=== PATIENT | male | born 1940 | race Caucasian/White ===

== ENCOUNTER 2019-03-31 15:33 | Inpatient (IN) | payer MEDICARE ==
[~2019-03-31] VITALS: Ht 175.3 cm; Wt 72.6 kg
--- NOTE | 2019-03-31 17:00 | NUR ---
PATIENT ADMITTED FROM [facility] IN [place]. DIAG: ASPIRATION PNEUMONIA. ALERT/ORIENT TO SELF. PATIENT BROUGHT BY AMBULANCE. MARIAJOSEECE, AUBREY, WITH PATIENT. OXYGEN ON AT 2L PER N/C
--- NOTE | 2019-03-31 17:05 | NUR ---
RECIEVED PER AMBULANCE FROM [facility],ROOM 1113A.ORIENTED TO ROOM AND SURROUNDINGS.ACCOMPANIED BY BASSEM RUSS.
[2019-03-31] MEDS ORDERED: ASPIRIN81 MG PO (17:36)
[2019-03-31] MEDS ORDERED: OMNICEF300 MG PO (17:36)
[2019-03-31] MEDS ORDERED: VITAMIN D31000 UNI2 PO (17:37)
[2019-03-31] MEDS ORDERED: PROZAC10 MG PO (17:38)
[2019-03-31] MEDS ORDERED: NEURONTIN 300300 MG PO (17:39)
[2019-03-31] MEDS ORDERED: MYCOLOG TOPICAL (17:40)
[2019-03-31] MEDS ORDERED: FLOMAX0.4 MG PO (17:42)
[2019-03-31] MEDS ORDERED: VITAMIN B-12100 MCG PO (17:43)
--- NOTE | 2019-03-31 19:09 | NUR ---
GREETED PATIENT AND INTRODUCED MYSELF HIS NURSE. PATIENT IS CONFUSED AT THIS TIME. ORIENTATED TO SELF ONLY. FAMILY MEMBER AT BEDSIDE AT THIS TIME. O2 AT 2L VIA NC. IN USE. RESPIRATIONS EVEN. NO S/S OF DISTRESS. CALL LIGHT IN REACH.
[2019-03-31 21:59] VITALS: BP 127/59; BMI 23.6
--- NOTE | 2019-04-01 00:24 | NUR ---
PT. RESTING QUIETLY WITH EYES CLOSED. RESPIRATIONS EVEN. NO S/S OF DISTRESS. O2 AT 2L IN USE VIA NC. CALL LIGHT IN REACH.
--- NOTE | 2019-04-01 02:27 | NUR ---
PT. CLEANED OF INCONTINENT URINE. REPOSITIONED FOR COMFORT. CALL LIGHT IN REACH.
--- NOTE | 2019-04-01 08:12 | NUR ---
PT RESTING IN BED WITH EYES OPEN CALL LIGHT IN REACH NO PROBLEMS WILL MONITER
[2019-04-01 08:13] VITALS: BP 142/55
[2019-04-01 14:20] VITALS: Ht 175.3 cm; Wt 72.6 kg
--- NOTE | 2019-04-01 14:51 | NUR ---
SPOKE WITH PATIENT BROTHER AND SISTER N LAW AND THEY HAVE PROVIDED DOCUMENTS THAT THEY MAY VISIT PATIENT. DOCUMENTS ARE IN CHART.
--- NOTE | 2019-04-01 18:18 | NUR ---
PT RESTING IN BED WITH EYES OPEN CALL LIGHT IN REACH NO PROBLEMS WILL MONITER
[2019-04-01 19:40] VITALS: BP 154/63
--- NOTE | 2019-04-01 19:40 | NUR ---
BEDSIDE REPORT COMPLETE. PT LYING IN BED EYES CLOSED RESTING. EASILY AROUSED WITH VERBAL STIMULI. DENIES ANY NEEDS OR PAIN. CONTINUES ON 2L VIA NC. VS STABLE SHIFT ASSESSMENT COMPLETE. CL IN REACH. BED ALARM ON. WILL CONTINUE TO MONITOR
--- NOTE | 2019-04-01 23:14 | NUR ---
QUIET HOURS. PT LYING IN BED EYES CLOSED RESTING COMFORTABLY. HOB 10 DEGREES. RR EVEN AND UNLABORED. CL IN REACH
--- NOTE | 2019-04-02 03:17 | NUR ---
PT LYING IN BED EYES CLOSED RESTING COMFORTABLY. HOB 15 DEGREES. RR EVEN AND UNLABORED. CONTINUES ON 2L VIA NC. CL IN REACH
[2019-04-02 08:00] VITALS: BP 153/51
--- NOTE | 2019-04-02 08:00 | NUR ---
PATIENT IS ALERT WITH CONFUSION. ALERT TO SELF ONLY. SITTING UP IN BED TO EAT BREAKFAST. PATIENT ABLE TO FEED SELF WITH SETUP. ON REGULAR DIET WITH NECATAR THICK LIQ WITH MECH SOFT, CHOPPED MEAT
--- NOTE | 2019-04-02 10:45 | NUR ---
PATIENT INCONT OF URINE. CHANGED BEFORE GETTING UP IN WHEELCHAIR FOR THERAPY. MAX ASST OF TWO PEOPLE TO TRANSFER FROM BED TO WHEELCHAIR
--- NOTE | 2019-04-02 15:50 | NUR ---
PATIENTS NIECE IN ROOM, VISITING WITH PATIENT
--- NOTE | 2019-04-02 17:10 | NUR ---
PATIENT BASSEM HELPED PATIENT WITH SUPPER
[2019-04-02 18:40] VITALS: BP 148/57
--- NOTE | 2019-04-02 18:40 | NUR ---
BEDSIDE REPORT COMPLETE. PT LYING IN BED ALERT AND AWAKE. ASSISTED SHAQUILLE MEHTA WITH PERFORMING INCONTINENCE CARE LARGE VOID. NEW GOWN, CHUX, AND BUTTPASTE APPLIED TO BUTTOCKS. RR EVEN AND UNLABORED. CL IN REACH, BED ALARM ON. WILL CONTINUE TO MONITOR
--- NOTE | 2019-04-02 23:08 | NUR ---
PT LYING ON RIGHT SIDE EYES CLOSED RESTING QUIETLY. RR EVEN AND UNLABORED. CONTINUES ON 2L VIA NC. CL IN REACH
--- NOTE | 2019-04-03 03:07 | NUR ---
PT LYING IN BED EYES CLOSED RESTING. CHUX AND LINENS CLEAN AND DRY. RR EVEN AND UNLABORED. CL IN REACH
--- NOTE | 2019-04-03 05:30 | NUR ---
PERFORMED BEDBATH AND COMPLETE LINEN CHANGE. DENIES ANY NEEDS OR PAIN. NO SIGNS OF ACUTE DISTRESS NOTED. CONTINUES ON 2L VIA NC. CL AND WATER WITHIN REACH.
--- NOTE | 2019-04-03 08:15 | NUR ---
PT RESTING IN BED WITH EYES OPEN CALL LIGHT IN REACH WILL MONITER
[2019-04-03 18:10] VITALS: BP 109/49
--- NOTE | 2019-04-03 18:50 | NUR ---
BEDSIDE REPORT COMPLETE. PT LYING IN BED WATCHING TV. DENIES ANY NEEDS OR PAIN. RR EVEN AND UNLABORED. VS STABLE. SHIFT ASSESSMENT COMPLETE. CL IN REACH. BED ALARM ON. WILL CONTINUE TO MONITOR
[2019-04-03 20:40] VITALS: BP 170/59
--- NOTE | 2019-04-04 00:08 | NUR ---
QUIET HOURS. PT LYING IN BED EYES CLOSED RESTING. RR EVEN AND UNLABORED. CL IN REACH
--- NOTE | 2019-04-04 04:17 | NUR ---
PT LYING IN BED EYES CLOSED RESTING. RR EVEN AND UNLABORED. CL IN REACH
--- NOTE | 2019-04-04 05:15 | NUR ---
PERFORMED INCONTINENCE CARE LARGE VOID AND MED FORMED BM. APPLIED CALMOSEPTINE TO BUTTOCKS AND GROIN AREA.
[2019-04-04 06:17] LABS: BASOPHILS 0.2 % (0-2); EOSINOPHILS 3.4 % (0-7); HEMATOCRIT 29.7 % (42.0-54.0); HEMOGLOBIN 9.5 g/dL (13.5-17.5); IMMATURE GRANULOCYTES 0.6 % (0-5); LYMPHOCYTES 16.5 % (15-50); MCV 87.6 fL (80.0-100.0); MEAN PLATELET VOLUME 9.4 fL (7.4-10.4); MONOCYTES 8.8 % (2-11); NEUTROPHILS 70.5 % (40-80); PLATELET COUNT 318 10x3/uL (130-400); RBC 3.39 10x6/uL (4.20-6.10); RDW 14.8 % (11.5-14.5); WBC 9.6 10x3/uL (4.8-10.8)
[2019-04-04 06:32] LABS: CALC OSMOLALITY 281 mosm/kg (275-300); CALCIUM 8.6 mg/dL (8.5-10.1); CARBON DIOXIDE 26.6 mmol/L (21.0-32.0); CHLORIDE - SERUM 104 mmol/L (98-107); GLUCOSE 97 mg/dL (74-106); POTASSIUM - SERUM 4.6 mmol/L (3.5-5.1); SODIUM 139 mmol/L (136-145); UREA NITROGEN 24 mg/dL (7-18); eGFR NON AFRICAN AMERICAN 76 mL/min (90-120)
[2019-04-04 08:00] VITALS: BP 128/92
--- NOTE | 2019-04-04 08:00 | NUR ---
PATIENT IS ALERT WITH CONFUSION. SITTING UP IN BED TO EAT BREAKFAST. FOOD CUT UP FOR THIS PATIENT AND CARTONS OPENED. PATIENT ABLE TO FEED SELF. BED ALARM ON. PATIENT VOICES NO FURTHER NEEDS. WILL CONTINUE WITH PLAN OF CARE
--- NOTE | 2019-04-04 10:59 | NUR ---
OCCUPATIONAL THERAPY IN PATIENTS ROOM. GETTING PATIENT OUT OF BED. PATIENT IS A MAX TO TOTAL ASST OF TWO
--- NOTE | 2019-04-04 13:19 | NUR ---
PATIENT DOWN IN REHAB ROOM. WORKIN WITH PHYSICAL THERAPIST.
--- NOTE | 2019-04-04 14:43 | NUR ---
Nutrition Follow-up: Diet: Regular [facility] Soft, Chopped Meat, Nec thick PO intake: ~69% average x last 9 meals. Reports good appetite, he thinks he is eating "okay, I guess." States that he likes Ensure. Last BM: 04/04/19. WT: 160# (04/01/19) Labs and meds reviewed. Noted stage II PU to R buttocks per nursing skin assessment. Continue current diet or per EQUAL OPPORTUNITY SPECIALIST. Encourage PO intake. Will add nectar thick Ensure to diet order. RD following.
--- NOTE | 2019-04-04 16:15 | NUR ---
SPEECH THERAPIST IN ROOM. WORKING WITH PATIENT
--- NOTE | 2019-04-04 18:41 | NUR ---
PATIENT SITTING UP IN BED TO EAT SUPPER. HAS VISITORS IN ROOM.
[2019-04-04 19:00] VITALS: BP 140/71
--- NOTE | 2019-04-04 19:00 | NUR ---
BEDSIDE REPORT COMPLETE. PT SITTING UP IN BED VISITING WITH FAMILY. DENIES ANY NEEDS OR PAIN. NO SIGNS OF ACUTE DISTRESS NOTED. VS STABLE. SHIFT ASSESSMENT COMPLETE. CL IN REACH. BED ALARM ON. WILL CONTINUE TO MONITOR
--- NOTE | 2019-04-05 | NUR ---
QUIET HOURS. PT LYING IN BED EYES CLOSED RESTING COMFORTABLY. RR EVEN AND UNLABORED. CL IN REACH
--- NOTE | 2019-04-05 03:05 | NUR ---
PERFORMED INCONTINENCE CARE FOR LARGE VOID AND SMALL FORMED BM. COMPLETE LINEN CHANGE DONE. CALMOSEPTINE APPLIED TO GROIN AREA. CL IN REACH.
[2019-04-05 08:00] VITALS: BP 112/32
[2019-04-05 20:12] VITALS: BP 137/59
--- NOTE | 2019-04-05 20:21 | NUR ---
AWAKE AND ALERT. RESTING IN BED WITH RESPIRAITONS UNLABORED. NO DISTRESS NOTED. CALL LIGHT IN REACH.
--- NOTE | 2019-04-06 01:17 | NUR ---
INCONTINENT OF URINE AND BOWEL. INCONTINENCE CARE GIVEN AND BED LINENS CHANGED. NOW RESTING IN BED WITH RESPIRATIONS UNLABORED. CALL LIGHT IN REACH.
--- NOTE | 2019-04-06 03:06 | NUR ---
SLEEPING WITH RESPIRATIONS UNLABORED. NO DISTRESS NOTED. CALL LIGHT IN REACH.
--- NOTE | 2019-04-06 05:12 | NUR ---
INCONTINENT OF BOWEL AND BLADDER AGAIN. INCONTINENCE CARE GIVEN AND BED BATH GIVEN. REMAINS CONFUSED. SLEPT IN MODERATE INTERVALS. RESTING NOW WITH RESPIRATIONS UNLABORED.
[2019-04-06 06:19] LABS: BASOPHILS 0.5 % (0-2); HEMATOCRIT 30.3 % (42.0-54.0); HEMOGLOBIN 9.7 g/dL (13.5-17.5); IMMATURE GRANULOCYTES 1.6 % (0-5); LYMPHOCYTES 16.2 % (15-50); MCH 28.6 pg (26.0-34.0); MCV 89.4 fL (80.0-100.0); MEAN PLATELET VOLUME 9.9 fL (7.4-10.4); MONOCYTES 10.6 % (2-11); NEUTROPHILS 64.1 % (40-80); PLATELET COUNT 377 10x3/uL (130-400); RBC 3.39 10x6/uL (4.20-6.10); RDW 14.7 % (11.5-14.5); WBC 7.7 10x3/uL (4.8-10.8)
[2019-04-06 07:07] LABS: ANION GAP 13.4 mmol/L (8-16); CALCIUM 8.9 mg/dL (8.5-10.1); CARBON DIOXIDE 27.4 mmol/L (21.0-32.0); CREATININE - SERUM 1.2 mg/dL (0.6-1.3); POTASSIUM - SERUM 4.8 mmol/L (3.5-5.1)
[2019-04-06 07:46] VITALS: BP 139/54
--- NOTE | 2019-04-06 15:57 | NUR ---
Nutrition Follow-up: Diet: Regular [facility] Soft, Thin Liquids PO intake: ~56% average x last 9 meals recorded. Reports that his appetite is "not too good." However, he had eaten most of his lunch tray. States that he likes the Ensure and is "drinking them for calories." Last BM: 04/06/19 x 2. WT: 160# (04/01/19), no new wt Meds and labs reviewed. Noted stage II PU to right buttocks per nursing skin. Continue current nutrition regimen. Encouraged PO intake. RD following.
--- NOTE | 2019-04-06 16:00 | NUR ---
PT HAS OPEN WOUND MEASURING 3CM X 3CM ON RIGHT BUTTOCK (STAGE 2 PRESSURE INJURY) AND 3CM X 3CM ON LEFT BUTTOCK. THE AREAS APPEAR TO BE HEALING. RECOMMENDED CALMOSEPTINE CREAM BE APPLIED BID AND NEEDED WITH ANY INCONTINENT EPISODES. ALSO RECOMMENDED NOT USING MEPILEX BORDER DRESSINGS OVER CALMOSEPTINE COVERED SKIN. KEEP PT TURN/REPOSITIONED ON HIS SIDES WHILE IN BED. WOUND CARE WILL MONITOR.
--- NOTE | 2019-04-06 16:17 | NUR ---
CARE TEAM MEETING: PATIENTS BROTHER AND SISTER N LAW ATTENDED MEETING. THEIR QUESTIONS AND CONCERNS WERE ADDRESSED. DISCHARGE PLANS ARE UNCERTAIN AT THIS TIME. WILL CONTINUE TO FOLLOW WITH PATIENT. WILL CONTINUE TO FOLLOW WITH PATIENT.TENATIVE DISCHARGE DATE 04/15/19.
[2019-04-06 19:30] VITALS: BP 136/62
--- NOTE | 2019-04-06 19:35 | NUR ---
BEDSIDE REPORT COMPLETE. PT SITTING UP IN BED ALERT AND ORIENTED X2. DENIES ANY NEEDS OR PAIN. ASSISTED JESUS MANUEL RN WITH INCONTINENCE CARE. CALMOSEPTINE APPLIED TO BUTTOCKS. POSITIONED PT ON RIGHT SIDE. CL IN REACH. FALL PRECAUTIONS IN PLACE. WILL CONTINUE TO MONITOR
--- NOTE | 2019-04-07 00:10 | NUR ---
QUIET HOURS. PT LYING IN BED ON RIGHT SIDE EYES CLOSED RESTING COMFORTABLY. RR EVEN AND UNLABORED. CL IN REACH
--- NOTE | 2019-04-07 03:57 | NUR ---
PT LYING IN BED ON LEFT SIDE EYES CLOSED RESTING. RR EVEN AND UNLABORED. CL IN REACH
--- NOTE | 2019-04-07 06:54 | NUR ---
PT LYING IN BED ON LEFT SIDE EYES CLOSED RESTING. RR EVEN AND UNLABORED. CL IN REACH
--- NOTE | 2019-04-07 12:10 | NUR ---
PT RESTING IN BED WITH EYES OPEN CALL LIGHT IN REACH NO PROBLEMS WILL MONITER
--- NOTE | 2019-04-07 18:03 | NUR ---
PT RESTING IN BED WITH EYES OPEN CALL LIGHT IN REACH NO PROBLEMS WILL MONITER
[2019-04-07 19:30] VITALS: BP 129/55
--- NOTE | 2019-04-07 19:30 | NUR ---
BEDSIDE REPORT COMPLETE. PT LYING IN BED ON RIGHT SIDE EYES CLOSED RESTING. EASILY AROUSED WITH VERBAL STIMULI. DENIES ANY NEEDS OR PAIN. NO SIGNS OF ACUTE DISTRESS NOTED. VS STABLE. SHIFT ASSESSMENT COMPLETE. CL IN REACH. FALL PRECAUTIONS IN PLACE. WILL CONTINUE TO MONITOR
--- NOTE | 2019-04-08 00:09 | NUR ---
QUIET HOURS. PT LYING IN BED RIGHT SIDE EYES CLOSED RESTING COMFORTABLY. RR EVEN AND UNLABORED. CL IN REACH
--- NOTE | 2019-04-08 03:52 | NUR ---
PT LYING IN BED ON RIGHT SIDE EYES CLOSED RESTING COMFORTABLY. RR EVEN AND UNLABORED. CL IN REACH
--- NOTE | 2019-04-08 04:52 | NUR ---
PERFORMED INCONTINENCE CARE CHANGED UNDERPADS AND APPLIED CALMOSEPTINE TO BUTTOCKS AND GROIN AREA. POSITIONED PT ON LEFT SIDE. CL IN REACH
--- NOTE | 2019-04-08 06:15 | NUR ---
PERFORMED INCONTINENCE CARE, CHANGED UNDERPADS, APPLIED CALMOSEPTINE TO BUTTOCKS AND GROIN. POSITIONED PT TO RIGHT SIDE. CL IN REACH
[2019-04-08 07:28] LABS: BASOPHILS 0.4 % (0-2); EOSINOPHILS 4.1 % (0-7); HEMATOCRIT 30.5 % (42.0-54.0); HEMOGLOBIN 9.8 g/dL (13.5-17.5); IMMATURE GRANULOCYTES 0.9 % (0-5); LYMPHOCYTES 20.8 % (15-50); MCHC 32.1 g/dL (31.0-37.0); MEAN PLATELET VOLUME 9.3 fL (7.4-10.4); MONOCYTES 9.5 % (2-11); NEUTROPHILS 64.3 % (40-80); PLATELET COUNT 430 10x3/uL (130-400); RDW 14.9 % (11.5-14.5); WBC 6.8 10x3/uL (4.8-10.8)
[2019-04-08 07:42] LABS: ANION GAP 12.7 mmol/L (8-16); CALCIUM 9.2 mg/dL (8.5-10.1); CARBON DIOXIDE 26.8 mmol/L (21.0-32.0); CREATININE - SERUM 1.3 mg/dL (0.6-1.3); POTASSIUM - SERUM 4.5 mmol/L (3.5-5.1)
[2019-04-08 07:46] LABS: MCV 87.1 fL (80.0-100.0)
--- NOTE | 2019-04-08 08:15 | NUR ---
PT RESTING IN BED WITH EYES OPEN CALL LIGHT IN REACH NO PROBLEMS WILL MONITER
[2019-04-08 08:19] VITALS: BP 133/67
--- NOTE | 2019-04-08 18:26 | NUR ---
PT INCONTINENT OF URINE PT CLEANED AND DRYED WILL MONITER
[2019-04-08 19:51] VITALS: BP 129/55
--- NOTE | 2019-04-08 20:04 | NUR ---
AWAKE AND ALERT. RESTING IN BED WITH RESPIRAITONS UNLABORED. NOTED CONFUSED. NO ACUTE DISTRESS NOTED. CALL LIGHT IN REACH.
--- NOTE | 2019-04-09 00:45 | NUR ---
RESTING IN BED WITH EYES CLOSED AND RESPIRATIONS UNLABORED. NO DISTRESS NOTED. CALL LIGHT IN REACH.
--- NOTE | 2019-04-09 02:38 | NUR ---
CONTINUES SLEEPING WITH RESPIRATIONS UNLABORED. NO DISTRESS NOTED.
--- NOTE | 2019-04-09 05:03 | NUR ---
QUIET HOURS. NO ACUTE CHANGES IN CONDITION THIS SHIFT. RESTING IN BED WITH NO DISTESS NOTED.
[2019-04-09 08:00] VITALS: BP 142/61
--- NOTE | 2019-04-09 08:00 | NUR ---
SHIFT ASSMT COMPLETED.
[2019-04-09 19:28] VITALS: BP 162/61
--- NOTE | 2019-04-09 19:34 | NUR ---
AWAKE AND ALERT. RESTING IN BED FINISHING MEAL. RESPIRATIONS UNLABORED. NO ACUTE DISTRESS NOTED. CALL LIGHT IN REACH.
--- NOTE | 2019-04-09 22:50 | NUR ---
HIBLICLENS BATH GIVEN AND LINENS CHANGED. INCONTINENT OF URINE AND BM. AFTER BATH A CONDOM CATHETHER APPLIED. MEPILEX DRESSING APPLIED TO PRESSURE SORES ON BUTTOCKS. WILL MONITOR EFFECTIVNESS OF CONDOM CATHETER TO KEEP URINE AWAY FROM SKIN.
--- NOTE | 2019-04-10 02:30 | NUR ---
RESTING IN BED WITH EYES CLOSED AND RESPIRATIONS UNLABORED. CONDOM CATH IN PLACE AND DRAINING TO RIDDLE BAG. NO DISTRESS NOTED.
--- NOTE | 2019-04-10 05:19 | NUR ---
QUIET HOURS. NO ACUTE CHANGES IN CONDITION THIS SHIFT. CONDOM CATHETER IN PLACE WITH NOTED 650ML OUTPUT. MEPILEX DRESSING TO BUTTOCKS IN PLACE. RESTING NOW WITH NO DISTRESS NOTED.
[2019-04-10 08:00] VITALS: BP 124/52
--- NOTE | 2019-04-10 08:00 | NUR ---
SHIFT ASSMT COMPLETED.
--- NOTE | 2019-04-10 16:00 | NUR ---
WILL CONTINUE TO MONITOR
[2019-04-10 19:25] VITALS: BP 129/54
--- NOTE | 2019-04-10 19:29 | NUR ---
RESTING IN BED WITH RESPIRATIONS UNLABORED. REMAINS CONFUSED AT TIMES. NO DISTRESS NOTED. CALL LIGHT IN REACH.
--- NOTE | 2019-04-11 00:54 | NUR ---
INCONTINENT OF URINE. INCONTIENCE CARE GIVEN. RESTING NOW WITH NO DISTRESS NOTED.
[2019-04-11 06:50] LABS: BASOPHILS 0.5 % (0-2); EOSINOPHILS 4.8 % (0-7); HEMATOCRIT 32.5 % (42.0-54.0); HEMOGLOBIN 10.2 g/dL (13.5-17.5); IMMATURE GRANULOCYTES 0.9 % (0-5); LYMPHOCYTES 20.7 % (15-50); MCH 27.9 pg (26.0-34.0); MCHC 31.4 g/dL (31.0-37.0); MEAN PLATELET VOLUME 9.3 fL (7.4-10.4); MONOCYTES 6.5 % (2-11); NEUTROPHILS 66.6 % (40-80); PLATELET COUNT 492 10x3/uL (130-400); RBC 3.65 10x6/uL (4.20-6.10); RDW 14.9 % (11.5-14.5)
[2019-04-11 07:09] LABS: CALCIUM 8.9 mg/dL (8.5-10.1); CARBON DIOXIDE 26.6 mmol/L (21.0-32.0); CREATININE - SERUM 1.4 mg/dL (0.6-1.3); POTASSIUM - SERUM 4.6 mmol/L (3.5-5.1)
[2019-04-11 09:04] VITALS: BP 133/67
--- NOTE | 2019-04-11 11:24 | NUR ---
PARTICIPATED IN THERAPY THIS AM. SITTING IN WC WITH CHAIR ALARM ON AT THIS TIME.
--- NOTE | 2019-04-11 13:54 | NUR ---
Nutrition Follow-up: [facility], thin liquids PO intake: 75-100% x last 10 meals; reports good appetite. Is drinking Ensure. Last BM: 04/10/19. WT: 160# (04/01/19), no new wt Meds and labs reviewed. Noted stage II PU x 2 to buttocks per nursing skin assessment. Recommend continue current nutrition regimen. RD following.
--- NOTE | 2019-04-11 16:37 | NUR ---
NO CHANGE IN ASSESSMENT. RESTING WO DISTRESS. CL IN REACH.
--- NOTE | 2019-04-11 19:15 | NUR ---
PT IS RESTING IN BED WITH EYES OPEN. ALERT TO SELF AND PLACE. CONFUSED TO TIME AND SITUATION. NO INCONTINENCE NOTED AT THIS TIME. MEPILEX TO COCCYX IS CDI. SR'S ARE UP X 2 IN BED. CALL LIGHT AND BEDSIDE TABLE ARE WITHIN EASY REACH.
[2019-04-11 21:58] VITALS: BP 114/53
--- NOTE | 2019-04-11 23:00 | NUR ---
PT IS RESTING QUIETLY IN BED WITH EYES CLOSED. RESPS ARE EVEN AND UNLABORED. NO ACUTE DISTRESS NOTED.
--- NOTE | 2019-04-12 03:00 | NUR ---
RESTING IN BED WITH EYES CLOSED.
--- NOTE | 2019-04-12 06:11 | NUR ---
PT RESTING IN BED WITH EYES CLOSED.
--- NOTE | 2019-04-12 08:15 | NUR ---
PT RESTING IN BED WITH EYES OPEN CALL LIGHT IN REACH WILL MONITER
--- NOTE | 2019-04-12 11:35 | NUR ---
AFTER SPEAKING WITH FAMILY A REFERRAL HAS BEEN MADE TO [facility] FOR POSSIBLE ADMISSION ON 04/15/19. WILL CONTINUE TO FOLLOW WITH PATIENT
--- NOTE | 2019-04-12 18:32 | NUR ---
PT RESTING IN BED WITH EYES OPEN CALL LIGHT IN REACH NO PROBLEMS WILL MONITER
--- NOTE | 2019-04-12 19:41 | NUR ---
PATIENT RECEIVED SITTING UP IN BED. ASSESMENT & VITAL SIGNS DONE. NO C/O PAIN OR DISTRESS. BED LOW. CONDOM CATH PATENT WITH URINE YELLOW COLOR. ALARM ON. CALL LIGHT WITHIN REACH. WILL CONTINUE TO MONITOR.
[2019-04-12 19:45] VITALS: BP 117/64; BP 129/58
--- NOTE | 2019-04-13 00:39 | NUR ---
I have reviewed this patient and I concur with the Shift Assessment completed by the Licensed Practical Nurse today this shift.
--- NOTE | 2019-04-13 02:31 | NUR ---
PATIENT EYES CLOSED. RESPIRATIONS 18 & EVEN. BED LOW. ALARM ON. CALL LIGHT WITHIN REACH. WILL CONTINUE TO MONITOR.
[2019-04-13 07:20] LABS: ANION GAP 9.2 mmol/L (8-16); CALCIUM 8.7 mg/dL (8.5-10.1); CARBON DIOXIDE 28.2 mmol/L (21.0-32.0); CREATININE - SERUM 1.4 mg/dL (0.6-1.3); POTASSIUM - SERUM 4.4 mmol/L (3.5-5.1)
[2019-04-13 07:25] LABS: BASOPHILS 0.4 % (0-2); EOSINOPHILS 5.1 % (0-7); HEMATOCRIT 30.8 % (42.0-54.0); HEMOGLOBIN 10.3 g/dL (13.5-17.5); LYMPHOCYTES 20.5 % (15-50); MCH 29.7 pg (26.0-34.0); MCHC 33.4 g/dL (31.0-37.0); MCV 88.8 fL (80.0-100.0); MONOCYTES 10.6 % (2-11); NEUTROPHILS 62.4 % (40-80); PLATELET COUNT 474 10x3/uL (130-400); RBC 3.47 10x6/uL (4.20-6.10); RDW 14.8 % (11.5-14.5); WBC 6.9 10x3/uL (4.8-10.8)
[2019-04-13 08:00] VITALS: BP 131/64
--- NOTE | 2019-04-13 08:00 | NUR ---
PATIENT SITTING UP IN BED TO EAT BREAKFAST. BED ALARM ON. CALL LIGHT WITHIN REACH. VOICES NO NEEDS AT THIS TIME. WILL CONTINUE WITH PLAN OF CARE
--- NOTE | 2019-04-13 10:04 | NUR ---
PATIENT HAS BEEN ACCEPTED TO [facility] AND WILL DISCHARGE THERE ON 04/15/19 AT 11:30 VIA FACILITY [facility]AN. FAMILY HAS BEEN NOTIFIED. WILL CONTINUE TO FOLLOW WITH PATIENT.
--- NOTE | 2019-04-13 10:46 | NUR ---
PATIENT PCP IS DR. ABHAY HER IN [facility].
--- NOTE | 2019-04-13 12:00 | NUR ---
I have reviewed this patient and I concur with the Shift Assessment completed by the Licensed Practical Nurse today this shift.
--- NOTE | 2019-04-13 12:59 | NUR ---
PATIENT SITTING UP IN A WHEELCHAIR BY BEDSIDE TO EAT LUNCH. CALL LIGHT WITHIN REACH. CHAIR ALARM ON. PATIENT HAS STOOD UP. CHAIR ALARM WETN OFF. NURSE RESPONDED TO CHAIR ALARM
--- NOTE | 2019-04-13 14:45 | NUR ---
Nutrition Follow-up: Diet: Regular [facility] Soft with thin liquids PO intake: 80-100% x all. He reports a good appetite. Last BM: 04/12/19 x 1. WT: 160# (04/01/19), no new wt Meds and labs reviewed Noted stage II PU x 2 to R/L buttocks per nursing skin assessment. Continue current diet. Will add Andrew BID. RD Following.
--- NOTE | 2019-04-13 16:27 | NUR ---
CARE TEAM MEETING: PATIENTS SHWETA ATTENDED THE MEETING. THEIR QUESTIONS AND CONCERNS WERE ADRESSED. PATIENT WILL DISCHARGE TO [facility] ON 04/15/19 VIA FACILITY VAN. WILL CONTINUE TO FOLLOW WITH PATIENT.
[2019-04-13 18:43] VITALS: BP 149/71
--- NOTE | 2019-04-13 19:41 | NUR ---
GREETED PATIENT AND INTRODUCED MYSELF HIS NURSE. PATIENT IS LAYING IN BED RESTING QUIETLY AT THIS TIME. RESPIRATIONS EVEN. NO S/S OF DISTRESS. CALL LIGHT IN REACH.
--- NOTE | 2019-04-14 02:27 | NUR ---
PT. RESTING QUIETLY WITH EYES CLOSED. RESPIRATIONS EVEN. NO S/S OF DISTRESS. CALL LIGHT IN REACH.
[2019-04-14 08:00] VITALS: BP 120/50
--- NOTE | 2019-04-14 08:05 | NUR ---
PT EATING BREAKFAST, DENIES NEEDS. WCTM.
--- NOTE | 2019-04-14 10:30 | NUR ---
PT AM MEDS ADMINISTERED. PT DENIES NEEDS. WCTM.
--- NOTE | 2019-04-14 17:26 | NUR ---
PT EATING DINNER, DENIES NEEDS. WCTM.
--- NOTE | 2019-04-14 19:20 | NUR ---
PT SITTING UP IN BED. CL IN REACH. PT CONFUSED AT THIS TIME.BED ALARM ON. BED IN LOW SIDE RAILS X3. RESP EVEN AND UNLABORED. DENIES NEEDS AT THIS TIME. LUNGS CLEAR. BOWEL ACTIVE X4. WILL CONTINUE TO MONITOR.
[2019-04-14 20:42] VITALS: BP 119/65
--- NOTE | 2019-04-15 02:22 | NUR ---
I have reviewed this patient and I concur with the Shift Assessment completed by the Licensed Practical Nurse today this shift.
[2019-04-15 07:53] LABS: ANION GAP 10.5 mmol/L (8-16); CARBON DIOXIDE 26.5 mmol/L (21.0-32.0); CREATININE - SERUM 1.3 mg/dL (0.6-1.3)
[2019-04-15 07:54] LABS: BASOPHILS 0.5 % (0-2); EOSINOPHILS 4.8 % (0-7); HEMATOCRIT 31.7 % (42.0-54.0); HEMOGLOBIN 9.9 g/dL (13.5-17.5); IMMATURE GRANULOCYTES 0.7 % (0-5); LYMPHOCYTES 22.1 % (15-50); MCH 27.7 pg (26.0-34.0); MCHC 31.2 g/dL (31.0-37.0); MCV 88.8 fL (80.0-100.0); MEAN PLATELET VOLUME 9.4 fL (7.4-10.4); MONOCYTES 10.8 % (2-11); NEUTROPHILS 61.1 % (40-80); PLATELET COUNT 430 10x3/uL (130-400); RBC 3.57 10x6/uL (4.20-6.10); RDW 14.9 % (11.5-14.5); WBC 7.6 10x3/uL (4.8-10.8)
[2019-04-15 08:00] VITALS: BP 137/60
--- NOTE | 2019-04-15 09:15 | NUR ---
PATIENT DISCHARGING TO [facility] TODAY VIA FACILITY VAN. NO HOME HEALTH OR DME NEEDED AT THIS TIME. AN APPOINTMENT WITH DR. HER WILL BE MADE AT TIME OF DISCHARGE FROM FACILITY. PATIENT FAMILY DECLINED COMPARE DATA PATIENT HAD BEEN THERE BEFORE. PATIENT CHOICE FORM AND IMFM FORMS SIGNED, COPY GIVEN TO FAMILY.DISCHARGE INSTRUCTIONS FAXED TO PCP AND SNF. FAMILY HAS BEEN NOTIFIED OF PATIENT BEING ACCEPTED TO [facility].
--- NOTE | 2019-04-15 11:39 | NUR ---
REPORT CALLED TO ERICA MARIN LPN AT [facility].PT IS PACKED, DRESSED AND READY FOR TRANSPORT.
--- NOTE | 2019-04-15 11:53 | NUR ---
DC TO [facility]. TRANSPORT HERE TO GET PT. ALL PERSONAL BELONGINGS SENT WITH PT
--- NOTE | 2019-04-15 13:24 | NUR ---
REFUGIO APPROVED FOR ADMITT TO [facility].
--- NOTE | 2019-04-15 14:10 | NUR ---
WENT OVER D/C PLAN, FOLLOW UP APPT, INCISION CARE AND MEDS WTIH PT. SHE DENIES QUESTIONS. FAMILY IS ON THE WAY TO PICK HER UP
--- NOTE | 2019-04-25 10:22 | RHP ---
PATIENT: LAMAR LACEY MEDICAL RECORD: [id number] ACCOUNT: [id number] LOCATION:[facility]1113 : 36 ADMISSION DATE: 03/31/19 REHABILITATION HISTORY AND PHYSICAL EXAMINATION POST ADMISSION PHYSICIAN EXAMINATION DATE OF ADMISSION: 03/31/2019. ADMITTING DIAGNOSIS: Disuse myopathy. HISTORY OF PRESENT ILLNESS: The patient is an 78-year-old gentleman admitted to the hospital for not feeling well, rigors, and increased weakness, found to have a UTI with hematuria. He was noted to be septic. He has had both speech therapy and physical therapy during his acute hospital stay. He has been febrile at times and has been receiving IV antibiotic therapy. Monitoring his intake closely and recent swallow eval and upgraded diet from nectar thickened liquids to thin liquids with swallow precautions per speech therapy. He has got deconditioning, debility, proximal muscle weakness, impaired mobility, gait disturbance, high risk for falls, and self-care deficits. These are all barriers to his discharge home safely at this time. He lives at home with his niece, was independent with his ADLs and mobility with use of rolling walker prior to this. He has got a history of dementia; therefore, he has some confusion at times and problems processing his thoughts and problems at this time. He and his niece plan for him to return home at his prior level of function with home health set up after his inpatient stay. COMORBIDITIES: Include dysphagia, UTI, aspiration, essential hypertension, Alzheimer disease, dehydration, cystitis, rigors, sepsis, debility, and proximal muscle weakness. PAST MEDICAL HISTORY: Significant for arthritis, coronary artery disease, dementia, gastroesophageal reflux disease, ND in the past, hypertension, pneumonia. PAST SURGICAL HISTORY: None. ALLERGIES: ANY TYPE OF DAIRY PRODUCT AND PENICILLIN. CURRENT MEDICATIONS: Include B12 100 mcg daily, Flomax 0.4 mg daily, fluoxetine 10 mg daily, vitamin D 2000 units daily, aspirin 81 mg daily, Calmoseptine 1 application b.i.d. He is on Neurontin 300 mg t.i.d., Omnicef 300 mg b.i.d., and Chloraseptic spray as needed. HABITS: No alcohol or tobacco use. FAMILY HISTORY: Noncontributory. SOCIAL HISTORY: The patient hopes to return back home and get back to his prior level of functioning. REVIEW OF SYSTEMS: GENERAL: Denies weakness or fatigue. HEENT: Denies cold, cough, or congestion. CARDIOVASCULAR: He denies any chest pain. HISTORY AND PHYSICAL [id number] LAMAR LACEY PHYSICAL EXAMINATION: VITAL SIGNS: Stable. He is afebrile. GENERAL: An elderly gentleman in no acute distress, alert upon exam. HEENT: Normocephalic atraumatic. Mucosa moist. NECK: Supple. No lymphadenopathy. LUNGS: Clear at this time. No wheezing, rhonchi, or rales. HEART: Regular rate and rhythm. No murmurs, rubs or gallops. ABDOMEN: Soft, benign and nontender and positive bowel sounds times 4. EXTREMITIES: No clubbing, cyanosis or edema. NEUROLOGIC: He does have noted weakness in both his upper and lower extremities and he does have some confusion. 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 The patient has potential to make improvement. We instituted the following multidisciplinary therapies including, but not limited to physical, occupational, respiratory, speech, nutritional services, prosthetics and orthotics. Given his complex medical condition and risk for more complications, rehabilitation services cannot be provided at a low level of care such as a skilled nurse facility. PLAN: 1. Admit to [facility] rehab for an intensive inpatient therapy to include the following disciplines: A. Physical therapy to improve gait, all transfer skills and bed mobility to a modified independent level. B. Occupational therapy to improve activities of daily living to a modified independent level. C. Case management to assist with discharge planning and placement options. D. Nutrition to assist with nutritional needs. E. Rehabilitation nursing to assist in monitoring the patient's underlying medical conditions and to assist with any type of bowel or bladder management. 2. The patient's current medications and medical care will be continued. 3. The patient will be placed on standard fall precautions. 4. I will see again in the a.m. 5. We will follow up with care team as needed. TRANSINT:[id number] Voice Confirmation ID: [id number] DOCUMENT ID: [id number] LAYTON notes whether there has been none or any medical/functional change since admission: - No change since pre-admission screen. LAYTON attests patient continues to be appropriate for IRF: - Continues to be appropriate. HISTORY AND PHYSICAL [id number] LAMAR LACEY,CAROLYN MONGE MD at 1022 CC: [id number] DICTATION DATE: 04/01/19825 WORK ORDER SORTING CLERK: 04/01/19930 DIS IN 04/15/19 [place] [id number] [place] [id number]
== END 2019-04-15 11:00 | DRG 91 ==
LOC: D.REHAB 15:33
PROVIDERS: ADMIT Emergency Medicine; ATTEND Emergency Medicine
DX: G72.89 Other specified myopathies (principal); A41.9 Sepsis, unspecified organism; N39.0 Urinary tract infection, site not specified; F02.81 Dementia in other diseases classified elsewhere, unspecified severity, with behavioral disturbance; I10 Essential (primary) hypertension; F02.80 Dementia in other diseases classified elsewhere, unspecified severity, without behavioral disturbance, psychotic disturbance, mood disturbance, and anxiety; R53.1 Weakness; E86.0 Dehydration; R13.10 Dysphagia, unspecified; K21.9 Gastro-esophageal reflux disease without esophagitis; I25.10 Atherosclerotic heart disease of native coronary artery without angina pectoris; G30.1 Alzheimer's disease with late onset; R68.89 Other general symptoms and signs; R53.81 Other malaise